=== PATIENT | male | born 1965 | race Caucasian/White ===

== ENCOUNTER → 2017-10-20 11:29 | Outpatient (CLI) | payer MEDICAID, SELFPAY | PROVIDERS: Family Provider Family Medicine Geriatric Medicine; PCP Family Medicine Geriatric Medicine; Visit Provider Family Medicine Geriatric Medicine | DX: R68.83 Chills (without fever) (principal) | CPT/HCPCS: 87633 ==

== ENCOUNTER → 2017-12-16 15:44 | Outpatient (CLI) | payer MEDICAID, SELFPAY ==
[2017-12-16 17:01] LABS: Absolute Lymphocyte Count 2.81 X10^3/ul (0.83-4.51); Absolute Neutrophil Count 9.4 X10^3/uL (2.0-7.7); Basophil# 0.07 X10^3/uL; Basophil% 0.5 % (0-1); Eosinophil# 0.25 X10^3/uL; Eosinophils% 1.9 % (0-5); Hematocrit 46.8 % (40-54); Hemoglobin 15.6 g/dl (13.0-16.5); Lymphocyte # 2.81 X10^3/ul (4.0); Lymphocyte % 20.9 % (19-41); Mean Corp Hgb Conc 33.3 g/gl (32-36); Mean Corpuscular Hgb 30.7 pg (27.0-32.0); Mean Corpuscular Volume 92.1 fL (80-94); Mean Platelet Vol. 9.1 fl (6.2-12.0); Monocyte# 0.87 X10^3/uL; Monocyte% 6.5 % (0-10); Neutrophil # 9.38 X10^3/uL (2.7-7.7); Neutrophil % 69.9 % (47-70); Platelet Count 287 K/mm3 (150-450); RBC Distribution Width SD 49.3 fl (35.1-43.9); Red Blood Count 5.08 M/mm3 (4.6-6.2); White Blood Count 13.4 K/mm3 (4.4-11.0)
[2017-12-16 17:02] LABS: POSITIVE COUNT NO; POSITIVE DIFFERENTIAL NO; POSITIVE MORPHOLOGY NO
[2017-12-16 17:31] LABS: AST(SGOT) 40 U/L (15-37); Alanine Aminotransfer ALT/SGPT 52 U/L (16-61); Albumin, Serum 4.2 g/dL (3.2-5.0); Alkaline Phosphatase 116 U/L (45-117); Anion Gap 9 (5-15); BUN 14 mg/dL (7-18); BUN/Creat Ratio 13.9 RATIO (10-20); Calcium,Total 9.3 mg/dL (8.5-10.1); Chloride 99 mmol/L (98-107); Creatinine, Serum 1.01 mg/dL (0.70-1.30); EST Glomerular Filtration Rate 83 mL/min (>60); Est Glom Filt Rate - Afr Amer 100 mL/min (>60); Globulin 4.3 g/dL (2.2-4.2); Glucose 94 mg/dL (74-106); Potassium 4.1 mmol/L (3.5-5.1); Protein, Total 8.5 g/dL (6.4-8.2); Sodium Level 135 mmol/L (136-145); Thyroid Stim Hormone (TSH) 2.19 uIU/mL (0.358-3.74)
== END ==
PROVIDERS: Family Provider Family Medicine Geriatric Medicine; PCP Family Medicine Geriatric Medicine; Visit Provider Family Medicine Geriatric Medicine
DX: R53.83 Other fatigue (principal)
CPT/HCPCS: 36415; 80053; 84443; 85025

== ENCOUNTER 2020-04-10 11:36 | Emergency (ER) | payer MEDICAID, SELFPAY ==
[2020-04-10 11:37] VITALS: BP 112/62; PULSE 122; RESP 18; TEMP 36.6; O2SAT 96; BMI 21.4
--- NOTE | 2020-04-10 11:56 | EKG12_ITS ---
Test Reason : ETOH Blood Pressure : / mmHG Vent. Rate : 095 BPM Atrial Rate : 095 BPM P-R Int : 110 ms QRS Dur : 082 ms QT Int : 362 ms P-R-T Axes : 083 057 066 degrees QTc Int : 454 ms Sinus rhythm with short [place] Otherwise normal ECG Confirmed by LETY POWELL, TANMAY ([id number]), photographic editor NGUYỄN SALGADO ([id number]) on 04/12/2020 10:51:30 AM Referred By: PARISH Confirmed By:TANMAY DAVIDSON MD
[2020-04-10 12:08] VITALS: BP 146/96; PULSE 107; RESP 20; O2SAT 93
[2020-04-10 12:14] LABS: Absolute Lymphocyte Count 3.26 X10^3/uL (0.83-4.51); Basophil# 0.18 X10^3/uL; Basophil% 1.3 % (0-1); Eosinophil# 0.07 X10^3/uL; Eosinophils% 0.5 % (0-5); Hematocrit 38.2 % (40-54); Hemoglobin 12.3 g/dL (13.0-16.5); Lymphocyte # 3.26 X10^3/ul (4.0); Lymphocyte % 24.1 % (19-41); Mean Corp Hgb Conc 32.2 g/dL (32-36); Mean Corpuscular Hgb 32.8 pg (27.0-32.0); Mean Corpuscular Volume 101.9 fL (80-94); Mean Platelet Vol. 10.6 fl (6.2-12.0); Monocyte# 0.66 X10^3/uL; Monocyte% 4.9 % (0-10); NRBC Flagged by Analyzer 0.5 % (0-5); Neutrophil # 8.95 X10^3/uL (2.7-7.7); Neutrophil % 66.4 % (47-70); POSITIVE MORPHOLOGY YES; Platelet Count 141 K/mm3 (150-450); RBC Distribution Width SD 70.5 fl (35.1-43.9); Red Blood Count 3.75 M/mm3 (4.6-6.2); White Blood Count 13.5 K/mm3 (4.4-11.0)
[2020-04-10 12:15] LABS: Differential Indicated SCAN CRITERIA MET
--- NOTE | 2020-04-10 12:20 | RAD_ITS ---
STUDY: X-RAY CHEST REASON FOR EXAM: Male, 54 years old. ETOH. MOTHER STATES HAS NOT EATEN IN A WEEK. MOTHER STATES PT INCONTINENT AND UNABLE TO CARE FOR SELF. LAST DRINK 10 AM TODAY TECHNIQUE: AP and lateral views of the chest. COMPARISON: Comparison is made with prior study dated 07/21/2013. FINDINGS: Hyperinflation. The lungs are clear. There is no demonstrated pleural abnormality. Normal size heart. Normal mediastinum and robert. Normal visualized pulmonary arteries. Normal visualized aortic arch and descending thoracic aorta. Normal visualized thoracic spine. Normal visualized ribs, clavicles, and shoulders. There is no demonstrated abnormality of the visualized soft tissue structures of the upper abdomen. RAD/Chest PA and Lateral IMPRESSION: Hyperinflation. Electronically Signed: Anton Davila, at 12:36 EDT , Service support ,
--- NOTE | 2020-04-10 12:21 | ED.DCSUM_ITS ---
History of Present Illness Chief Complaint: ETOH Intox Informant: Patient, Family Narrative: Patient is a 54-year-old male who presents to the emergency department for failure to thrive at home and alcoholism. He states he drinks 6 of the 24 ounce beers per day. Has been doing this daily for the past couple of years. He has not been drinking anything besides alcohol and has not anything to eat over the past 2 weeks. His mother has been checking in on him and she called crisis to have him evaluated. He has been incontinent on himself with stool. He denies any urinary problems. His last drink was around 10 AM this morning. States he has gone through withdrawal in the past. No history of seizures. He does want to get help with his alcoholism currently. Denies any drug use. Does have a smoking history but has not smoked over the past 2 weeks as well. Only other complaints at this time states he does get some intermittent left-sided chest pain. Not presently there. Denies shortness of breath. Denies any abdominal pain or nausea/vomiting. Denies any headache or tremors. Past Medical History - Allergies and Home Meds Allergies/Adverse Reactions: Allergies No Known Allergies Allergy (Verified 04/10/20 11:40) Primary Care Physician: Niko Hummel MD [NON-STAFF] - 2 Days Care Physician,No Primary [Primary Care Provider] - Past Medical History: None Smoking Status: Current every day smoker Alcohol: Heavy Drugs: None Review of Systems All systems negative except as indicated General: Denies: Chills, Fever, Sweats Eyes: Denies: Visual changes - bilaterally, Diplopia ENT: Denies: Rhinorrhea, Sore throat Cardiovascular: Reports: Chest pain - Intermittent. Denies: Palpitations Respiratory: Reports: Cough. Denies: Dyspnea, Sputum, Dyspnea on exertion Gastrointestinal: Denies: Abdominal pain, Nausea, Vomiting, Diarrhea Genitourinary: Denies: Dysuria, Hematuria, Frequency Musculoskeletal: Denies: Back pain, Extremity Pain Skin: Denies: Rash, Wounds Neurological: Denies: Headache, Weakness, Numbness Physical Exam Vital Signs/Narrative: Vital Signs Temp Pulse Resp BP Pulse Ox 04/10/20 12:08 107 H 20 H 146/96 H 93 04/10/20 11:37 98 F 122 H 18 112/62 96 Inital Vital Signs reviewed: Yes General: Cachectic Head: Normocephalic, Atraumatic Eyes: Perrl, EOMI ENT: Moist mucous membranes, No rhinorrhea Neck: Supple, Nontender Cardiovascular: Regular rhythm, No murmurs, Tachycardia Respiratory: No distress, Chest nontender, Rhonchi, Wheezing Abdomen: Soft, Nontender, Nondistended, Normal bowel sounds Back: Nontender, Normal Inspection Extremities: Nontender, No edema Skin: Normal color, No rash Neurological: Alert, Oriented x3, Cranial nerves II-XII grossly intact, Normal Strength, Normal Sensation Psychological: Normal affect, Normal Mood Diagnostic/Tx/Re-eval - EKG Initial EKG Interpretation: - - Rate of 95 bpm in sinus rhythm. Has IL interval of 110 but otherwise normal intervals. Normal axis. No ST elevations or depressions appreciated. No T wave abnormalities. No prior EKG for comparison. - Medical Decision Making Patient presents to the ED for alcoholism. He has not been thriving at home. Upon arrival to the ED he is mildly tachycardic but otherwise normal vital signs. In no acute distress. Will check basic lab work with EKG and chest x- ray. Lab work showed the patient to have elevated liver enzymes. Did give him a multivitamin, thiamine, folic acid. Whenever I went to admit the patient the hospitalist came in to evaluate him. At that time patient refusing to be admitted. He wants to be discharged home. Mother is at bedside and will drive him home. She states that she feels comfortable bringing her back home at this time. Patient advised that he can return to the emerge department anytime for help with treatment. Rest the lab report was discussed with them. Warning signs and symptoms for which to return to the ED are reviewed. Patient able to ambulate out of the ED on his own power. They understand and are agreeable with this plan. ED Disposition - Plan for ED Patient: Disposition: Home or Assisted Living Diagnosis: Alcoholism /alcohol abuse, Elevated liver enzymes, Hyponatremia Instructions: ED Alcohol Abuse Referrals: Care Physician,No Primary [Primary Care Provider] - Niko Hummel MD [NON-STAFF] - 2 Days
[2020-04-10 12:29] LABS: ALB/GLOB Ratio 0.4 RATIO (0.9-2.4); AST(SGOT) 566 U/L (15-37); Alanine Aminotransfer ALT/SGPT 135 U/L (16-61); Albumin, Serum 2.6 g/dL (3.2-5.0); Alkaline Phosphatase 333 U/L (45-117); Anion Gap 11 (5-15); BUN 4 mg/dL (7-18); BUN/Creat Ratio 5.1 RATIO (10-20); Calcium,Total 8.7 mg/dL (8.5-10.1); Chloride 94 mmol/L (98-107); Creatinine, Serum 0.79 mg/dL (0.70-1.30); EST Glomerular Filtration Rate 109 mL/min (>60); Est Glom Filt Rate - Afr Amer 132 mL/min (>60); Estimated Creatinine Clearance 86.72 ml/min; Globulin 6.1 g/dL (2.2-4.2); Glucose 128 mg/dL (74-106); Potassium 3.4 mmol/L (3.5-5.1); Protein, Total 8.7 g/dL (6.4-8.2); Sodium Level 130 mmol/L (136-145)
[2020-04-10] MEDS: Folic Acid 1 MG Tablet PO (12:45)
[2020-04-10 12:47] VITALS: BP 162/88; PULSE 106; RESP 18; TEMP 36.8; O2SAT 94
[2020-04-10] MEDS: Multivitamins,Therapeutic Tablet 1 TABLET PO (12:54)
[2020-04-10 12:58] LABS: Anisocytosis 1+
--- NOTE | 2020-04-10 13:05 | ED.RN ---
LAB CALLED ETOH 358. DR BROOKS
[2020-04-10 13:45] LABS: Amphetamine Urine VISTA NEGATIVE (<1000 ng/mL); Barbiturate Urine VISTA NEGATIVE (< 200 ng/mL); Benzodiazepine Urine VISTA NEGATIVE (< 200 ng/mL); Cocaine Urine VISTA NEGATIVE (< 300 ng/mL); Ecstacy Urine VISTA NEGATIVE (< 500 ng/mL); Methadone Urine VISTA NEGATIVE (< 300 ng/mL); PCP Urine VISTA NEGATIVE (< 25 ng/mL); THC Urine VISTA NEGATIVE (< 50 ng/mL); Vista UDS pH Range 6
[2020-04-10 13:45] LABS: Magnesium 2.4 mg/dL (1.6-2.6)
--- NOTE | 2020-04-10 13:49 | NURSING ---
MED SURG DETOX [facility]
--- NOTE | 2020-04-10 13:56 | ED.RN ---
PT REFUSES TO SIGN ADMISSION CONTRACT. REQUESTING TO GO HOME
--- NOTE | 2020-04-10 14:00 | CM.ED ---
SOCIAL WORK Informant: NurseSimran Reason for Consult: Alcohol Intoxication Informed by nurse, patient is here with mother who was wanting patient to complete detox. Patient unwilling to sign agreement for [facility] and is not open to detox at this time. Patient wanting to go home. Met with patient and patient's mother in room. Introduced role. Mother willing to assume care of patient and transport patient to his home. Patient given resources. Patient stating to have been in AA in the past with a sponsor and plans to follow up with AA. Encouragement and support provided. Plan: Home with mother. Substance Abuse resources provided. Brannon Olmstead, CONTACT LENS LATHE OPERATOR, SINGLE WIRE SAW OPERATOR
--- NOTE | 2020-04-10 14:05 | ED.RN ---
MOTHER WILLING TO ASSUME RESPONSIBILTY FOR PT AND TAKE HIM HOME. PT DC'D. ENCOURAGED TO SEEK TREAT,EMT. INFORMATION PROVIDED
== END 2020-04-10 14:07 | disposition home or self-care (01) ==
PROVIDERS: Emergency Provider Emergency Medicine
DX: F10.20 Alcohol dependence, uncomplicated (principal); Y90.9 Presence of alcohol in blood, level not specified; F17.200 Nicotine dependence, unspecified, uncomplicated; E87.1 Hypo-osmolality and hyponatremia; R74.8 Abnormal levels of other serum enzymes
CPT/HCPCS: 71046; 80053; 80307; 80320; 83735; 84484; 85025; 93005; 96365; 99284; J7040; A4216; G0480; J3490

== ENCOUNTER 2020-06-04 09:50 | Emergency (ER) | payer MEDICAID, SELFPAY ==
[2020-04-27 09:48] VITALS: BMI 21.4
[2020-06-04] VITALS (11 sets, daily range): BP systolic 94–146; BP diastolic 68–81; PULSE 90–104; RESP 13–18; TEMP 36.2–36.8; O2SAT 94–99; BMI 22.8
--- NOTE | 2020-06-04 10:12 | EKG12_ITS ---
Test Reason : Blood Pressure : / mmHG Vent. Rate : 103 BPM Atrial Rate : 103 BPM P-R Int : 096 ms QRS Dur : 084 ms QT Int : 352 ms P-R-T Axes : 072 064 -78 degrees QTc Int : 461 ms Sinus tachycardia with short [place] Nonspecific T wave abnormality Abnormal ECG Confirmed by LETY OPWELL, TANMAY ([id number]), deputy editor in chief NGUYỄN SALGADO ([id number]) on 06/06/2020 1:45:06 PM Referred By: AMY Confirmed By:TANMAY ADVIDSON MD
--- NOTE | 2020-06-04 10:12 | CT_ITS ---
STUDY: CT ABDOMEN AND PELVIS WITH CONTRAST REASON FOR EXAM: Male, 55 years old. NEW JAUNDICE, ETOH RADIATION DOSAGE (If Supplied By Facility): CTDIvol = ( 15.50 ) mGy, DLP = ( 563.44 ) mGycm TECHNIQUE: Transaxial images were obtained from the dome of the diaphragm to the symphysis pubis without oral contrast. IV 100mL Isovue-300 was administered. Sagittal and coronal images were reconstructed. Individualized dose optimization techniques were used for this CT. COMPARISON: None. FINDINGS: The visualized lung bases are unremarkable. The visualized portions of the heart are within normal limits. There is decreased attenuation of the liver consistent with steatosis. Hepatomegaly. The gallbladder is distended. Layering multiple small gallstones are seen along its dependent portion. Normal spleen. Findings suggestive of varices within the splenic hilum. Normal pancreas. Small amount of perihepatic and perisplenic fluid. Normal bilateral adrenal glands. Normal right kidney. Normal left kidney. Normal visualized stomach. There is evidence of thickening of the small bowel wall. Normal colon. The appendix is visualized and appears normal. There is diffuse atherosclerotic calcification of the abdominal aorta, without a demonstrated aneurysm. Normal inferior vena cava. Normal retroperitoneum. Mild ascites. Mild degree of bladder wall thickening. There is a 1.3 cm diverticulum along the posterior basal aspect of the right side of the urinary bladder. Normal abdominal wall. Normal osseous structures. CT/Abdomen/Pelvis W IV Cont ONLY IMPRESSION: Ascites. Hepatomegaly and diffuse fatty infiltration of the liver. Edematous changes seen throughout the small bowel loops although there is no evidence of obstruction at this time. Electronically Signed: Anton Davila, at 11:23 EDT , Service support ,
--- NOTE | 2020-06-04 10:15 | ED.VIS.GEN ---
History of Present Illness Chief Complaint: General Illness Informant: Patient Narrative: Patient is a 55-year-old male with known history of alcohol abuse and hypertension presenting via EMS for concerns of worsening jaundice and diarrhea. Patient lives home alone but his mother came and checked on him. She is the one who called EMS. Patient has no specific complaints at this time. When EMS found him he had soiled himself and had black stool around him. Patient woke up around 7 AM this morning and started drinking beer. He states he has had 3-4 tall boys so far today. Patient states he stopped drinking around 2 AM last night. He drinks beer but does not drink any liquor or wine. Patient not sure how long he has been having black stools/diarrhea. He is also not sure how long he has been appearing jaundiced. Patient currently denies any complaints. Patient was seen for alcohol intoxication and initially was going to be admitted last month for alcohol detox but then refused and left. At that time patient was found to have a transaminitis. Past Medical History - Allergies and Home Meds Allergies/Adverse Reactions: Allergies No Known Allergies Allergy (Verified 06/04/20 10:00) Primary Care Physician: Sandy Cruz MD [Primary Care Provider] - Past Medical History: - - Alcohol abuse, hypertension Surgical History: noncontributory Lives: Alone Smoking Status: Current some day smoker Alcohol: Heavy Drugs: None Review of Systems General: Reports: Malaise. Denies: Chills, Fever, Sweats Eyes: Denies: Visual changes - bilaterally, Diplopia ENT: Denies: Rhinorrhea, Sore throat Cardiovascular: Denies: Chest pain, Palpitations Respiratory: Denies: Dyspnea, Cough, Dyspnea on exertion Gastrointestinal: Reports: Diarrhea, Melena. Denies: Abdominal pain, Nausea, Vomiting, Hematochezia Genitourinary: Denies: Dysuria, Hematuria, Frequency Musculoskeletal: Denies: Back pain, Extremity Pain Skin: Reports: - - Jaundice. Denies: Rash, Wounds Neurological: Denies: Headache, Weakness, Numbness Physical Exam Vital Signs/Narrative: Vital Signs Temp Pulse Resp BP Pulse Ox 06/04/20 09:51 98.0 F 96 15 146/79 H 95 Inital Vital Signs reviewed: Yes General: Well developed, Unkempt, No Acute Distress Head: Normocephalic, Atraumatic Eyes: Perrl, EOMI, Scleral icterus ENT: No rhinorrhea, TM's clear, Dry mucous membranes, - Neck: Supple, Nontender, No JVD Cardiovascular: Regular rate, Regular rhythm, No murmurs Respiratory: No distress, CTA bilaterally, Chest nontender Abdomen: Soft, Nontender, Nondistended, Normal bowel sounds, - - No appreciable ascites or fluid wave Rectal: - - Gross melena on exam Back: Nontender, Normal Inspection Extremities: Nontender, No edema Skin: No rash, Jaundice Neurological: Alert, Oriented x3, Cranial nerves II-XII grossly intact, Normal Strength, Normal Sensation, - - No asterixis present Psychological: Normal affect, Normal Mood Diagnostic/Tx/Re-eval Clinical Impression(s) from Imaging Studies Abdomen/Pelvis CT 06/04/20 10:12 IMPRESSION: Ascites. Hepatomegaly and diffuse fatty infiltration of the liver. Edematous changes seen throughout the small bowel loops although there is no evidence of obstruction at this time. Electronically Signed: Anton Davila, at 11:23 EDT , Service support , Laboratory Data 06/04/20 06/04/20 06/04/20 09:53 09:53 09:53 WBC 8.9 RBC 2.10 L Hgb 7.9 L Hct 23.8 L MCV 113.3 H MCH 37.6 H MCHC 33.2 RDW Std Deviation 63.6 H RDW Coeff of Kady 15.7 H Plt Count 93 L MPV 10.2 Immature Gran % (Auto) 3.400 H Neut % (Auto) 68.8 Lymph % (Auto) 17.9 L Addison % (Auto) 7.5 Eos % (Auto) 1.3 Baso % (Auto) 1.1 H Absolute Neuts (auto) 6.1 Absolute Lymphs (auto) 1.59 Nucleated RBC % 0 Platelet Estimate MKD DEC Polychromasia 1+ Hypochromasia 2+ Macrocytosis 1+ Target Cells 1+ PT INR Sodium 132 L Potassium 3.6 Chloride 100 Carbon Dioxide 22.0 Anion Gap 10 BUN 6 L Creatinine 0.54 L Estim Creat Clear Calc 130.95 Est GFR (MDRD) Af Amer 204 Est GFR (MDRD) Non-Af 168 BUN/Creatinine Ratio 11.1 Glucose 78 Lactic Acid Calcium 7.6 L Total Bilirubin 14.10 H Direct Bilirubin 11.83 H AST 631 H ALT 86 H Alkaline Phosphatase 184 H Ammonia Troponin I < 0.015 Total Protein 6.7 Albumin 1.7 L Globulin 5.0 H Lipase 727 H Ethyl Alcohol 343.0 H* Blood Type Antibody Screen 06/04/20 06/04/20 06/04/20 09:53 09:53 10:25 WBC RBC Hgb Hct MCV MCH MCHC RDW Std Deviation RDW Coeff of Kady Plt Count MPV Immature Gran % (Auto) Neut % (Auto) Lymph % (Auto) Addison % (Auto) Eos % (Auto) Baso % (Auto) Absolute Neuts (auto) Absolute Lymphs (auto) Nucleated RBC % Platelet Estimate Polychromasia Hypochromasia Macrocytosis Target Cells PT 19.1 H INR 1.7 Sodium Potassium Chloride Carbon Dioxide Anion Gap BUN Creatinine Estim Creat Clear Calc Est GFR (MDRD) Af Amer Est GFR (MDRD) Non-Af BUN/Creatinine Ratio Glucose Lactic Acid 2.8 H* Calcium Total Bilirubin Direct Bilirubin AST ALT Alkaline Phosphatase Ammonia 34.0 H Troponin I Total Protein Albumin Globulin Lipase Ethyl Alcohol Blood Type Antibody Screen 06/04/20 06/04/20 06/04/20 10:25 13:14 15:15 WBC RBC Hgb 7.2 L Hct 22.4 L MCV MCH MCHC RDW Std Deviation RDW Coeff of Kady Plt Count MPV Immature Gran % (Auto) Neut % (Auto) Lymph % (Auto) Addison % (Auto) Eos % (Auto) Baso % (Auto) Absolute Neuts (auto) Absolute Lymphs (auto) Nucleated RBC % Platelet Estimate Polychromasia Hypochromasia Macrocytosis Target Cells PT INR Sodium Potassium Chloride Carbon Dioxide Anion Gap BUN Creatinine Estim Creat Clear Calc Est GFR (MDRD) Af Amer Est GFR (MDRD) Non-Af BUN/Creatinine Ratio Glucose Lactic Acid 3.2 H* Calcium Total Bilirubin Direct Bilirubin AST ALT Alkaline Phosphatase Ammonia Troponin I Total Protein Albumin Globulin Lipase Ethyl Alcohol Blood Type A NEGATIVE Antibody Screen NEGATIVE - Rhythm Strip Rhythm Strip: Sinus Tach Rate: 103 Ectopy: None - EKG Initial EKG Interpretation: Sinus Tachycardia, - - Sinus tachycardia at a rate of 103 Parable 96 QRS 84 QTc [address] segments - Medical Decision Making Patient is evaluated for new onset of jaundice in the setting of alcohol dependency/abuse. Also found to have melanotic stool. Patient lives alone his mother called 911. Patient does appear quite jaundiced. He is mildly tachycardic. He is mildly intoxicated but otherwise acting appropriately. He does not appear encephalopathic. He is not have asterixis. Patient is hemodynamically stable in the emergency room. His work-up is significant for elevated direct bilirubinemia, elevated lipase and transaminitis. This is consistent with his clinical picture. In addition he does have melena on exam and has an acute anemia over the past 2 months. Given his acute jaundice, CT is obtained to look for an obstructive process. No obvious obstructive process is noted. Patient does have some findings consistent with splenic varices and cirrhosis of the liver. This is all quite consistent with his physical exam and presentation. He does have findings consistent with liver failure including mildly elevated pneumonia, elevated INR and thrombocytopenia. As we do not have GI capabilities here and patient might require variceal banding at some point, patient be transferred to another hospital that has GI acute buildings. Patient is accepted by Dr. Sepulveda at [facility]. Dr. Sepulveda does request in addition to Protonix patient be given Rocephin and octreotide. In addition he request an H&H be repeated to make sure he is not having any significant drops with hydration. This all is done and patient is accepted. Patient is agreeable with this plan of care. He is given a 500 cc bolus in the ER and 125 cc maintenance fluid. Patient is also given thiamine and folic acid. He is not showing signs of withdrawal in the ER but is monitored in case he starts to go into alcohol withdrawal given his history. ED Disposition - Plan for ED Patient: Disposition: [facility] Diagnosis: Jaundice, Transaminitis, GI bleed, Alcohol abuse with physiological dependence, Elevated lactic acid level Referrals: Sandy Cruz MD [Primary Care Provider] -
[2020-06-04] MEDS: 0.9% Normal Saline 1,000 ML 125 ML IV ×2 (10:23→18:36)
[2020-06-04 10:25] LABS: Absolute Lymphocyte Count 1.59 X10^3/uL (0.83-4.51); Absolute Neutrophil Count 6.1 X10^3/uL (2.0-7.7); Basophil% 1.1 % (0-1); Eosinophil# 0.12 X10^3/uL; Eosinophils% 1.3 % (0-5); Hematocrit 23.8 % (40-54); Hemoglobin 7.9 g/dL (13.0-16.5); Lymphocyte # 1.59 X10^3/ul (4.0); Lymphocyte % 17.9 % (19-41); Mean Corp Hgb Conc 33.2 g/dL (32-36); Mean Corpuscular Hgb 37.6 pg (27.0-32.0); Mean Corpuscular Volume 113.3 fL (80-94); Mean Platelet Vol. 10.2 fl (6.2-12.0); Monocyte# 0.67 X10^3/uL; Monocyte% 7.5 % (0-10); NRBC Flagged by Analyzer 0 % (0-5); Neutrophil # 6.11 X10^3/uL (2.7-7.7); Neutrophil % 68.8 % (47-70); POSITIVE COUNT YES; Platelet Count 93 K/mm3 (150-450); RBC Distribution Width CV 15.7 % (11.6-14.6); RBC Distribution Width SD 63.6 fl (35.1-43.9); White Blood Count 8.9 K/mm3 (4.4-11.0)
[2020-06-04 10:42] LABS: International Normalized Ratio 1.7; Prothrombin Time (Protime)PT. 19.1 SECONDS (11.7-14.9)
[2020-06-04 10:48] LABS: Differential Indicated SCAN CRITERIA MET
[2020-06-04 10:50] LABS: Hypochromasia 2+; Macrocytosis 1+; Platelet Estimate MKD DEC (ADEQ); Polychromasia 1+; Target Cells 1+
[2020-06-04 10:57] LABS: AST(SGOT) 631 U/L (15-37); Alanine Aminotransfer ALT/SGPT 86 U/L (16-61); Albumin, Serum 1.7 g/dL (3.2-5.0); Alkaline Phosphatase 184 U/L (45-117); Anion Gap 10 (5-15); BUN 6 mg/dL (7-18); BUN/Creat Ratio 11.1 RATIO (10-20); Bilirubin, Direct 11.83 mg/dL (0.00-0.30); Calcium,Total 7.6 mg/dL (8.5-10.1); Chloride 100 mmol/L (98-107); Creatinine, Serum 0.54 mg/dL (0.70-1.30); EST Glomerular Filtration Rate 168 mL/min (>60); Est Glom Filt Rate - Afr Amer 204 mL/min (>60); Estimated Creatinine Clearance 130.95 ml/min; Glucose 78 mg/dL (74-106); Lipase 727 U/L (73-393); Potassium 3.6 mmol/L (3.5-5.1); Protein, Total 6.7 g/dL (6.4-8.2); Sodium Level 132 mmol/L (136-145)
[2020-06-04 11:03] LABS: Lactic Acid 2.8 mmol/L (0.4-1.9)
[2020-06-04] MEDS: Ceftriaxone 1 GM/50 ML BAG IV (13:19)
[2020-06-04] MEDS: Octreotide 0.1 MG/ML ML IV (13:20)
[2020-06-04 13:22] LABS: Hematocrit 22.4 % (40-54); Hemoglobin 7.2 g/dL (13.0-16.5)
[2020-06-04 14:30] LABS: Reflex Lactate? Y
[2020-06-04 15:57] LABS: Lactic Acid 3.2 mmol/L (0.4-1.9)
--- NOTE | 2020-06-04 17:21 | NURSING ---
1710 CALLED SUSANNE UNDERWOOD TALKED TO NORMAN, TRANSFER LINE. SHOULD HAVE A BED WITHIN THE HOUR.
--- NOTE | 2020-06-04 17:51 | NURSING ---
[facility] SUSANNE BARTON [id number] NURSE TO NURSE [phone]
--- NOTE | 2020-06-04 18:04 | NURSING ---
ETA IS 90 MIN
[2020-06-04] MEDS: LORazepam 2 MG/ML Syringe 1 MG IV (18:36)
--- NOTE | 2020-06-04 19:24 | ED.RN ---
ambulance enroute for patient was diverted to take more critical patient at this time. patient made aware along with doctor
--- NOTE | 2020-06-04 21:11 | ED.RN ---
WAITED 10 MIN FOR NURSE AT [facility] TO TAKE REPORT. CALLED BACK AND HEALTH SERVICES INFORMATION SPECIALIST TELLS ME THEY HAD A RAPID RESPONSE CALLED AND RNS WERE BUSY, I OFFERED FOR [facility] RN TO CALL ME BACK WHEN SHE HAD THE TIME, SHE ACCEPTED. DIRECT NUMBER TO ED GIVEN AND MY NAME.
== END 2020-06-04 21:00 | disposition short-term general hospital (02) ==
PROVIDERS: Emergency Provider Emergency Medicine; PCP Internal Medicine
DX: F10.229 Alcohol dependence with intoxication, unspecified (principal); R74.01 Elevation of levels of liver transaminase levels; K76.0 Fatty (change of) liver, not elsewhere classified; Y90.9 Presence of alcohol in blood, level not specified; I10 Essential (primary) hypertension; R18.8 Other ascites; Z60.2 Problems related to living alone
CPT/HCPCS: 36430; 74177; 80048; 80076; 80320; 82140; 82274; 83605; 83690; 84484; 85014; 85018; 85025; 85610; 86850; 86900; 86901; 86920; 93005; 96361; 96365; 96375; 99285; J7030; J7040; J7050; P9016; Q9967; A4216; G0480; J2354; J3490

== ENCOUNTER 2021-03-29 17:17 | Emergency (ER) | payer MEDICAID, SELFPAY ==
[2021-03-29 17:18] VITALS: BP 116/78; PULSE 96; RESP 18; TEMP 36.2; O2SAT 93; BMI 24.0
--- NOTE | 2021-03-29 18:25 | CT_ITS ---
STUDY: CT BRAIN WITHOUT CONTRAST REASON FOR EXAM: Male, 55 years old. Fall RADIATION DOSAGE (If Supplied By Facility): CTDIvol = ( 44.99 ) mGy, DLP = ( 711.75 ) mGycm TECHNIQUE: Transaxial CT imaging of the brain was performed without administration of intravenous contrast material. Individualized dose optimization techniques were used for this CT. COMPARISON: No relevant priors. FINDINGS: Normal soft tissue structures. Normal calvarium. Calcification of cavernous carotids Moderate atrophy and mild periventricular white matter ischemic changes.. Normal basal ganglia and thalami. Normal brainstem. Diffuse cerebellar atrophy.. There is no intracranial hemorrhage. There are no findings of an acute ischemic infarction. Normal visualized paranasal sinuses. CT/Brain/Head without Contrast IMPRESSION: Cerebral and cerebellar atrophy in association with mild periventricular white matter ischemic change. No evidence for acute intracranial bleed. Electronically Signed: Efren Duque MD at 19:48 EDT , Service support ,
--- NOTE | 2021-03-29 18:29 | EKG12_ITS ---
Test Reason : DYSRHYTHMIA Blood Pressure : / mmHG Vent. Rate : 093 BPM Atrial Rate : 093 BPM P-R Int : 124 ms QRS Dur : 070 ms QT Int : 362 ms P-R-T Axes : 076 058 029 degrees QTc Int : 450 ms Sinus rhythm with Premature atrial complexes Septal infarct , age undetermined Abnormal ECG Confirmed by REESE POWELL, BRANDAN ([id number]), business editor NGUYỄN SALGADO ([id number]) on 04/01/2021 1:39:23 PM Referred By: MAGDI Confirmed By:CHAS LEIGH MD
--- NOTE | 2021-03-29 18:31 | EDS_ITS ---
HPI HPI - Fall History of Present Illness Chief Complaint: Fall Informant: patient Occured/Mechanism Occurred: Today Mechanism/Context: Yes same level fall Pain/Injury Location: Generalized Worsened by: Nothing Relieved by: Nothing Associated Symptoms Associated Symptoms: Positive for Weakness and Inability to ambulate; Negative for Parasthesias and Loss of consciousness Narrative Narrative: Patient presents after a fall that occurred today. Patient states he lost his balance and fell. Patient states he was too weak to get up. Patient states his weakness has been getting progressively worse. Patient states he feels weak all over. Patient denies any chest pain or palpitations. Patient admits to some swelling of his abdomen. Patient has a history of cirrhosis and hepatitis. Patient states he drinks 4 beers per day. Patient also smokes 1 pack of cigarettes per week. Patient has a history of COPD. [facility] Medical History Alcohol abuse Asthma Emphysema lung H/O emotional problems History of bladder infections Hypertension Home Medications NK 04/10/20 [History Last Taken Unknown] Allergy/AdvReac Type Severity Reaction Status Date / Time No Known Allergies Allergy Verified 03/29/21 17:22 Family History (Updated 04/27/20 @ 09:33 by Mattie Moralez) Mother Arthritis Breast cancer Diabetes Other Alcoholism Heart disease Myocardial infarction Sudden cardiac Surgical History History of bladder surgery Social History Smoking Status: Current some day smoker tobacco type: cigarettes alcohol intake: current alcohol intake frequency: 3 or more drinks per day Alcohol type: beer details: 4 24 OZ BEERS A DAY what type of physical activity do you participate in: none ROS ROS ED Constitutional Constitutional ED: Denies chills or fever(s) Eyes Eyes: Denies blurry vision or change in vision ENT ENT ED: Denies rhinorrhea or sore throat Cardiovascular Cardiovascular: Denies chest pain or palpitations Respiratory/Chest Respiratory/Chest: Denies cough or dyspnea Gastrointestinal Gastrointestinal: Denies nausea or vomiting Genitourinary Genitourinary ED: Denies dysuria or hematuria Musculoskeletal Musculoskeletal: Denies back pain or neck pain Integumentary Reports jaundice; Denies abscess Neurologic Neurologic: Reports weakness; Denies headache(s) Allergic/Immunologic Allergic/Immunologic ED: Denies mouth swelling or urticaria EXAM Physical Exam Const Vital Signs: 03/29/21 17:18 03/29/21 17:37 03/29/21 21:04 Temperature 97.1 F L Temperature Source Temporal Pulse Rate 96 97 Respiratory Rate 18 18 Respiratory Effort Short of Breath Respiratory Pattern Normal Blood Pressure 116/78 125/67 H Blood Pressure Mean 90 86 Pulse Ox 93 96 Oxygen Delivery Method Room Air Room Air Positive unkempt General Appearance ED: unkempt and NAD HEENT atraumatic Eyes PERRL and EOMs intact bilaterally General Eye ED: Yes scleral icterus Neck full ROM and supple Resp normal respiratory effort Auscultation: diminished lung sounds diffuse Cardio regular rate and regular rhythm GI non-tender GI Narrative: Rectal exam showed good sphincter tone. There is black stool. It was sent for Hemoccult. There were no masses palpated. Inspection: abdominal distention Auscultation: normoactive bowel sounds Palpation: soft Extremity full ROM Neuro oriented x3, CN's II-XII intact bilaterally, moves all extremities, no focal mo tor deficits and no sensory deficits noted Sensorium / Orientation: alert Psych mental status grossly normal Appearance: unkempt MDM MDM MDM Narrative Medical decision making narrative: EKG was obtained. On my interpretation, it showed a normal sinus rhythm with occasional PACs with a rate of 93. MS interval, QRS interval, and QTc intervals were all normal. [place] was normal. There are no acute ST or T wave changes. CBC shows a mild anemia with a hemoglobin 8.8 and hematocrit 26.9. This was actually improved from previous results. PT with INR was elevated at 20.71.9. Basic metabolic profile shows sodium 125 and chloride of 95. CO2 was 19. Total bilirubin was 17.3. Direct bilirubin was 13.47. AST was 435. ALT was normal. Alk phos was 351. Lactate was elevated at 3.8. Urinalysis does not show any evidence of urinary tract infection. CT scan of the brain was obtained. There is no acute intracranial abnormality noted. Portable chest x-ray was obtained. There is 1 view. On my interpretation, there is right basilar infiltrate versus atelectasis. Patient has no peritoneal signs. There is no abdominal tenderness. There is ascites. I do not feel this is spontaneous bacterial peritonitis since his abdomen is nontender. Patient was given Rocephin and Zithromax. Blood cultures were obtained. On reevaluation, patient did report that he has been having some black stools. Stool was sent for occult blood. It was black stool. Type and screen was ordered. With his history of cirrhosis and gastrointestinal bleeding, patient will likely need to be transferred since we do not have capabilities for treating portal hypertension and esophageal banding. Patient has been to [facility] in the past and would prefer to go there. Case was discussed with the transfer line [facility]. They are checking for availability of beds but believe that they will have a bed available tonight. Lab Data Attestation: I reviewed the patient's lab results. Labs: Laboratory Results - last 24 hr 03/29/21 03/29/21 03/29/21 17:30 17:30 18:55 WBC 10.3 RBC 2.63 L Hgb 8.8 L Hct 26.9 L MCV 102.3 H MCH 33.5 H MCHC 32.7 RDW Std Deviation 75.4 H RDW Coeff of Kady 20.2 H Plt Count 82 L MPV 11.1 Immature Gran % (Auto) 2.400 H Neut % (Auto) 72.9 H Lymph % (Auto) 15.1 L [place] % (Auto) 7.4 Eos % (Auto) 1.1 Baso % (Auto) 1.1 H Absolute Neuts (auto) 7.5 Absolute Lymphs (auto) 1.56 Nucleated RBC % 0 Differential Comment SCANNED Platelet Estimate MOD DEC Anisocytosis 1+ Target Cells RARE PT 20.7 H INR 1.9 APTT 57.2 H Sodium 125 L Potassium 4.0 Chloride 95 L Carbon Dioxide 19.0 L Anion Gap 11 BUN 6 L Creatinine 0.60 L Estim Creat Clear Calc 117.85 Est GFR (MDRD) Af Amer 179 Est GFR (MDRD) Non-Af 148 BUN/Creatinine Ratio 10.0 Glucose 87 Lactic Acid Calcium 7.3 L Total Bilirubin 17.30 H* Direct Bilirubin 13.47 H AST 435 H ALT 57 Alkaline Phosphatase 351 H Troponin I High Sens 8 Total Protein 7.0 Albumin 1.6 L Globulin 5.4 H Lipase 237 Urine Color Urine Clarity Urine pH Ur Specific Cameron Urine Protein Urine Glucose (UA) Urine Ketones Urine Occult Blood Urine Nitrite Urine Bilirubin Urine Urobilinogen Ur Leukocyte Esterase Urine RBC Urine WBC Ur Squamous Epith Cells Amorphous Sediment Urine Bacteria Urine Mucus 03/29/21 03/29/21 18:55 20:56 WBC RBC Hgb Hct MCV MCH MCHC RDW Std Deviation RDW Coeff of Kady Plt Count MPV Immature Gran % (Auto) Neut % (Auto) Lymph % (Auto) [place] % (Auto) Eos % (Auto) Baso % (Auto) Absolute Neuts (auto) Absolute Lymphs (auto) Nucleated RBC % Differential Comment Platelet Estimate Anisocytosis Target Cells PT INR APTT Sodium Potassium Chloride Carbon Dioxide Anion Gap BUN Creatinine Estim Creat Clear Calc Est GFR (MDRD) Af Amer Est GFR (MDRD) Non-Af BUN/Creatinine Ratio Glucose Lactic Acid 3.8 H* Calcium Total Bilirubin Direct Bilirubin AST ALT Alkaline Phosphatase Troponin I High Sens Total Protein Albumin Globulin Lipase Urine Color Adeline Urine Clarity Sl. Cloudy Urine pH 6.5 Ur Specific Cameron 1.010 Urine Protein 30 H Urine Glucose (UA) Normal Urine Ketones 15 H Urine Occult Blood 25 H Urine Nitrite Positive H Urine Bilirubin 6 H Urine Urobilinogen 8 H Ur Leukocyte Esterase 25 H Urine RBC 0-5 SEEN Urine WBC 0-5 SEEN Ur Squamous Epith Cells 0-5 SEEN Amorphous Sediment 1+ URATE Urine Bacteria RARE Urine Mucus 0 SEEN Radiography Chest X-Ray - ED: 1 View, Read by ED Physician, Read by Radiologist and Right Infiltrate Diagnostic Testing: Radiology Impression Brain CT 03/29/21 18:25 IMPRESSION: Cerebral and cerebellar atrophy in association with mild periventricular white matter ischemic change. No evidence for acute intracranial bleed. Electronically Signed: Efren Duque MD at 19:48 EDT , Service support , Chest X-Ray 03/29/21 22:15 IMPRESSION: Right lower lung subsegmental atelectasis versus infiltrate. Electronically Signed: Jeremy Manning MD at 23:24 EDT Tel , Service support , EKG Initial EKG: Interpretation: Sinus Rhythm (93 with occasional PACs) and No Acute Injury Pattern Prior EKG tracings: available for review Prior: Unchanged (06/04/2020) Critical Care Time Critical Care Time: Yes Critical care time (excluding procedures): 30-74 minutes (33), Including time spent:, Discussing w/Patient &/or Family/Materials Engineering Technician, Discussing w/Consultants, Arranging Admission or Transfer and Performing Direct Patient Care at Bedside Discharge Plan Triage Chief Complaint: Fall ED Provider: Michael Knapp Dx/Rx/DC Orders Clinical Impression: Alcoholic cirrhosis of liver with ascites, Gastrointestinal bleeding, upper, Community acquired pneumonia, Lactic acidosis Prescriptions: No Action NK RF: 0 Primary Care Provider: Cheyenne Gallardo Referrals: Cheyenne Gallardo PA [Primary Care Provider] - Disposition Disposition: Acute Care Hospital Discharge Location: [facility]
[2021-03-29 18:39] LABS: Absolute Lymphocyte Count 1.56 X10^3/uL (0.83-4.51); Absolute Neutrophil Count 7.5 X10^3/uL (2.0-7.7); Basophil# 0.11 X10^3/uL; Basophil% 1.1 % (0-1); Eosinophil# 0.11 X10^3/uL; Eosinophils% 1.1 % (0-5); Hematocrit 26.9 % (40-54); Hemoglobin 8.8 g/dL (13.0-16.5); Lymphocyte # 1.56 X10^3/ul (0.83-4.51); Lymphocyte % 15.1 % (19-41); Mean Corp Hgb Conc 32.7 g/dL (32-36); Mean Corpuscular Hgb 33.5 pg (27.0-32.0); Mean Corpuscular Volume 102.3 fL (80-94); Mean Platelet Vol. 11.1 fl (6.2-12.0); Monocyte# 0.76 X10^3/uL; Monocyte% 7.4 % (0-10); NRBC Flagged by Analyzer 0 % (0-5); Neutrophil # 7.51 X10^3/uL (2.7-7.7); Neutrophil % 72.9 % (47-70); POSITIVE COUNT YES; POSITIVE MORPHOLOGY YES; Platelet Count 82 K/mm3 (150-450); RBC Distribution Width CV 20.2 % (11.6-14.6); RBC Distribution Width SD 75.4 fl (35.1-43.9); Red Blood Count 2.63 M/mm3 (4.6-6.2); White Blood Count 10.3 K/mm3 (4.4-11.0)
[2021-03-29 18:41] LABS: Differential Indicated SCAN CRITERIA MET
[2021-03-29 18:58] LABS: AST(SGOT) 435 U/L (15-37); Alanine Aminotransfer ALT/SGPT 57 U/L (16-61); Albumin, Serum 1.6 g/dL (3.2-5.0); Alkaline Phosphatase 351 U/L (45-117); Anion Gap 11 (5-15); BUN 6 mg/dL (7-18); Bilirubin, Direct 13.47 mg/dL (0.00-0.30); Calcium,Total 7.3 mg/dL (8.5-10.1); Chloride 95 mmol/L (98-107); EST Glomerular Filtration Rate 148 mL/min (>60); Est Glom Filt Rate - Afr Amer 179 mL/min (>60); Estimated Creatinine Clearance 117.85 ml/min; Globulin 5.4 g/dL (2.2-4.2); Glucose 87 mg/dL (74-106); Lipase 237 U/L (73-393); Sodium Level 125 mmol/L (136-145); Troponin-I HS 8 pg/mL (3.0-78.0)
[2021-03-29 19:41] LABS: International Normalized Ratio 1.9; Prothrombin Time (Protime)PT. 20.7 SECONDS (11.7-14.9)
[2021-03-29 19:42] LABS: Partial Thromboplast Time 57.2 Seconds (24.1-36.2)
[2021-03-29 19:54] LABS: Anisocytosis 1+; Differential Comment SCANNED; Platelet Estimate MOD DEC (ADEQ); Target Cells RARE
[2021-03-29 19:57] LABS: Lactic Acid 3.8 mmol/L (0.4-1.9)
[2021-03-29 21:04] VITALS: BP 125/67; PULSE 97; RESP 18; O2SAT 96
[2021-03-29 21:06] LABS: Mucous, Urine 0 SEEN /hpf (<or=2+)
[2021-03-29 21:24] LABS: Color, Urine Amber (Yellow); Glucose, Dipstick Normal (Normal); Ketone-Dipstick 15 mg/dl (Negative); Leukocyte Esterase-Dipstick 25 /ul (Negative); Nitrite-Dipstick Positive (Negative); Occult Blood-Urine 25 /ul (Negative); Protein-Dipstick 30 mg/dl (Negative); Urine Clarity Sl. Cloudy (Clear); Urine Urobilinogen 8 mg/dl (Normal); Urine pH 6.5 (5.0 - 8.0)
[2021-03-29 21:30] LABS: Urine Bilirubin Dipstick 6 mg/dL (Negative)
[2021-03-29 21:31] LABS: Bacteria RARE /hpf (None Seen); Red Blood Cells-Urine 0-5 SEEN /hpf (0-5); Squamous Epithelial Cells - UA 0-5 SEEN /hpf (0-5); White Blood Cells 0-5 SEEN /hpf (0-5)
[2021-03-29 21:32] LABS: Amorphous Sediment 1+ URATE
--- NOTE | 2021-03-29 22:15 | RAD_ITS ---
STUDY: X-RAY CHEST REASON FOR EXAM: Male, 55 years old. Cough TECHNIQUE: Portable, upright, AP chest radiograph COMPARISON: 04/10/2020 FINDINGS: Right lower lung streaky opacities. The left lung is are clear and expanded. There is no demonstrated pleural abnormality. Normal size heart. Normal mediastinum and robert. Normal visualized pulmonary arteries. Normal visualized aortic arch and descending thoracic aorta. Normal visualized thoracic spine. Old right clavicle fracture. There is no demonstrated abnormality of the visualized soft tissue structures of the upper abdomen. RAD/Chest 1 View (Portable) IMPRESSION: Right lower lung subsegmental atelectasis versus infiltrate. Electronically Signed: Jeremy Manning MD at 23:24 EDT Tel , Service support ,
[2021-03-29 23:00] LABS: Reflex Lactate? Y
[2021-03-30] MEDS: 0.9% Normal Saline 1,000 ML 999 ML IV (00:25)
[2021-03-30 01:58] VITALS: BP 101/66; PULSE 91; RESP 17; O2SAT 96
[2021-03-30 02:58] VITALS: BP 95/67; PULSE 84; RESP 18; TEMP 36.6; O2SAT 96
[2021-03-30 04:31] LABS: Lactic Acid 3.8 mmol/L (0.4-1.9)
== END 2021-03-30 03:12 | disposition short-term general hospital (02) ==
PROVIDERS: Emergency Provider Emergency Medicine; PCP Physician Assistant
DX: K70.31 Alcoholic cirrhosis of liver with ascites (principal); J44.0 Chronic obstructive pulmonary disease with (acute) lower respiratory infection; J18.9 Pneumonia, unspecified organism; E87.2 Acidosis; K92.2 Gastrointestinal hemorrhage, unspecified; F17.210 Nicotine dependence, cigarettes, uncomplicated; I10 Essential (primary) hypertension; Z87.440 Personal history of urinary (tract) infections; W01.0XXA Fall on same level from slipping, tripping and stumbling without subsequent striking against object, initial encounter; I67.82 Cerebral ischemia
CPT/HCPCS: 70450; 71045; 80048; 80076; 81001; 82274; 83605; 83690; 84484; 85025; 85610; 85730; 86850; 86900; 86901; 87040; 87426; 93005; 99285; J7030; J7050; P9612; A4216; J0696; J2354; J3490